=== PATIENT | female | born 1985 | race Caucasian/White ===

== ENCOUNTER 2019-06-05 07:17 | Day surgery (SDC) | payer MEDICAID ==
[2019-06-03 16:33] LABS: BASOPHILS # (AUTO) 0.1 K/uL (0.00-0.22); BASOPHILS % (AUTO) 0.6 % (0.0-2.0); EOSINOPHILS # (AUTO) 0.1 K/uL (0-0.4); EOSINOPHILS % (AUTO) 0.8 % (0.0-4.0); HEMATOCRIT 37.8 % (36-48); HEMOGLOBIN 12.6 g/dL (12.0-16.0); LYMPHOCYTES % (AUTO) 23.6 % (20.5-51.1); MEAN CORPUSCULAR HEMOGLOBIN 28 pg (27-31); MEAN CORPUSCULAR HGB CONC 34 g/dL (33-37); MEAN CORPUSCULAR VOLUME 84.8 fL (80-94); MONOCYTES # (AUTO) 0.9 K/uL (0.8-1.0); MONOCYTES % (AUTO) 10.1 % (1.7-9.3); NEUTROPHILS # (AUTO) 5.6 K/uL (1.8-7.7); NEUTROPHILS % (AUTO) 64.9 % (42.2-75.2); PLATELET COUNT (AUTO) 223 K/uL (140-450); RED BLOOD CELL COUNT(AUTO) 4.45 MIL/uL (4.20-5.40); RED CELL DISTRIBUTION WIDTH 13.3 % (11.6-13.7); WHITE BLOOD COUNT (AUTO) 8.7 K/uL (4.8-10.8)
[2019-06-03 17:37] LABS: ALBUMIN 3.6 g/dL (3.4-5.0); ANION GAP 11.4 (8-16); CARBON DIOXIDE 27.5 mmol/L (21-32); CREATININE 0.7 mg/dL (0.6-1.3); POTASSIUM 3.9 mmol/L (3.5-5.1); TOTAL BILIRUBIN 0.2 mg/dL (0.0-1.0)
[~2019-06-05] VITALS: Ht 157.5 cm; Wt 68.0 kg
[2019-06-05] MEDS ORDERED: PROPOFOL 200 MG/20 ML VIAL IV ONE (09:56)
[2019-06-05] MEDS ORDERED: GLYCOPYRROLATE 0.2 MG/ML VIAL ONE (09:56)
[2019-06-05] MEDS ORDERED: DESFLURANE 240 ML BTL INH ONE (09:56)
[2019-06-05] MEDS ORDERED: SUCCINYLCHOLINE CHLORIDE 200 MG/10 ML VIAL IVP ONE (09:56)
[2019-06-05] MEDS ORDERED: ROCURONIUM 50 MG/5 ML VIAL IV ONE (09:56)
[2019-06-05] MEDS ORDERED: DEXAMETHASONE 4 MG/ML VIAL ONE (09:56)
[2019-06-05] MEDS ORDERED: NEOSTIGMINE 1:1000 10 MG/10 ML VIAL ONE (09:56)
[2019-06-05] MEDS ORDERED: KETOROLAC 30 MG/ML VIAL ONE (09:56)
[2019-06-05] MEDS ORDERED: LIDOCAINE 2% 100 MG/5 ML SYR IVP ONE (09:56)
[2019-06-05] MEDS ORDERED: ONDANSETRON 4 MG/2 ML VIAL ONE (09:56)
[2019-06-05] MEDS ORDERED: BUPIVACAINE-MPF/EPI 0.25% 30 ML VIAL INJ ONE (10:01)
[2019-06-05] MEDS ORDERED: fentaNYL 0.05 MG/ML VIAL ONE (10:06)
[2019-06-05] MEDS ORDERED: MIDAZOLAM 2 MG/2 ML VIAL ONE (10:06)
[2019-06-05] MEDS ORDERED: HYDROmorphone 1 MG/ML AMP IVP PRN (10:40)
[2019-06-05] MEDS ORDERED: ONDANSETRON 4 MG/2 ML VIAL IVP PRN (10:40)
--- NOTE | 2019-06-05 12:25 | NUR ---
FOLLOW UP IN OFFICE IN 2 WEEKS
== END 2019-06-05 13:00 | disposition home or self-care (01) ==
LOC: MMU 07:17 → MDS 07:17
PROVIDERS: ATTEND Obstetrics & Gynecology
DX: Z30.2 Encounter for sterilization (principal)
CPT/HCPCS: 36415; 58301; 58661; 80053; 84703; 85025; J0330; J1100; J1885; J2001; J2250; J2405; J2704; J2710; J3010; J3490; J7120